=== PATIENT | male | born 1950 | race Caucasian/White ===

== ENCOUNTER 2024-01-26 14:06 | Inpatient (IN) | payer OTHER, SELFPAY ==
[2024-01-26] VITALS (8 sets, daily range): BP systolic 16–166; BP diastolic 64–89; BMI 31.1
[2024-01-26 11:47] LABS: % Basophils 0.2 % (0-2); % Eosinophils 0.9 % (0-6); % Immature Granulocytes 0.3 % (0-0.5); % Lymphocytes 8.9 % (20.5-51.1); % Monocytes 7.5 % (1.7-9.3); % Neutrophils 82.2 % (42.2-75.2); Absolute Eosinophils 0.1 10^3/uL (0-0.7); Absolute Lymphocytes 1.1 10^3/uL (1.2-3.4); Absolute Monocytes 0.9 10^3/uL (0.1-0.6); Hemoglobin 14.5 g/dL (13.0-18.0); Mean Corp Hgb Conc. 34.5 g/dL (33.0-37.0); Mean Corpuscular Hgb 31.6 pg (27.0-31.0); Mean Corpuscular Volume 91.5 fL (80.0-94.0); Mean Platelet Volume 10.3 fL (7.4-10.4); Nucleated Red Blood Cells % 0 % (-); Platelet Count 252 10^3/uL (130-400); Red Blood Cell Count 4.59 10^6/uL (4.70-6.10); Red Cell Dist. Width 13.2 % (11.5-14.5); White Blood Cell Count 12.2 10^3/uL (4.8-10.8)
[2024-01-26 12:11] LABS: ALT (SGPT) 26 U/L (0-50); AST (SGOT) 27 U/L (17-59); Albumin 4.1 g/dl (3.5-5.0); Alkaline Phosphatase 114 U/L (38-126); Blood Urea Nitrogen 32 mg/dl (9-20); Calcium 9.2 mg/dl (8.4-10.2); Carbon Dioxide 26 mmol/L (22-30); Chloride 100 mmol/L (98-107); Glucose 151 mg/dl (70-99); Potassium 3.6 mmol/L (3.5-5.1); Sodium 141 mmol/L (135-145); Total Bilirubin 0.6 mg/dl (0.2-1.3); Total Protein 6.9 g/dl (6.3-8.2); eGFR > 60.00
--- NOTE | 2024-01-26 13:38 | ED.GENMED ---
History of Present Illness
General
Chief Complaint: Skin Problem
Source: patient and spouse
Time Seen by Provider: 01/26/24 13:10
History of Present Illness
History of Present Illness:
73-year-old male with past medical history of hypertension, hyperlipidemia, CAD, insulin-dependent diabetes presenting to the emergency department for evaluation of right plantar foot wound/infection that started approximately 4 days ago, gave
patient 4 total doses of Augmentin starting yesterday which she had leftover from previous use but noticed continued redness and drainage from the foot. believes this started from about 2 weeks ago when patient had been walking barefoot and
accidentally got a splinter which she was able to remove fully intact. Starting 4 days ago patient has had gradually worsening pain and swelling since then. Patient's last hemoglobin A1c couple weeks ago was around 7.5. Denies any fevers, chills,
rigors. Last oral intake of food or liquids was at 8 AM this morning.
Past History
Past History
ED Past Medical History: CAD, HTN, Hypercholesterolemia and IDDM
ED Past Surgical History: None
Social History
Tobacco: Non-smoker
Alcohol: None
Drug: None
Personal:
Living: with family
Review of Systems
Review of Systems
All Other Systems: ROS reviewed and negative except as documented in HPI and ROS
Phy Exam
Physical Exam
Physical Exam:
GENERAL: Alert , in no apparent distress
EYE: conjunctiva clear
Head: Normocephalic atraumatic
NECK: Supple,
ENT: mmm.
LUNGS: no acute respiratory distress
NEUROLOGICAL: Alert and oriented
SKIN: Warm and dry, moderate sized abscess in between 1st and 2nd distal metatarsals with significant surrounding erythema and edema. Moderate pain on palpation. small purulent drainage from wound opening. Palpable pedal pulses b/l. CR < 2 sec
MUSCULOSKELETAL: well perfused.
PSYCH: Normal and appropriate interaction.
Scores
Heart Failure Risk
Heart Failure Risk Score: Not Applicable
Heart Score for Chest Pain Patients
STEMI patient?: Not applicable
Withdrawal Assessment of Alcohol
Withdrawal Assessment Completed?: Not applicable
Course
Orders/Labs/Results
Orders:
Orders
01/26/24 11:38
C-Reactive Protein Urgent
Comment: ADD ON
Complete Blood Count/With Diff Urgent
Comprehensive Metabolic Panel Urgent
Erythrocyte Sed Rate Urgent
Comment: ADD ON
Glycohemoglobin (HgbA1c) Urgent
01/26/24 13:27
Add On- LAB Urgent
Tests Added?: esr/crp
Piperacillin/Tazo 3.375 Gram [Zosyn] 3.375 gram in 50 ml IV NOW
CR Foot - Right Min 3 Views Urgent
Comment:
Reason For Exam: diabetic foot abscess
01/26/24 13:29
Vancomycin [Vancocin] 2,000 mg 0.9% Sodium Chloride 500 ml [Nss] 500 ml IV NOW
01/26/24 13:49
Admit/Transfer Patient As Directed
Co-Sign Provider:
Level of Care: Inpatient admission
Assign to:: Medical/Surgical
Physician / Group: devan
Diagnosis: foot abscess
Reason for Hospitalization: foot abscess
Expected length of stay greater than two midnights?: Yes
ELOS- Estimated Length of Stay in days: 2
I certify the patient meets the requirements for IP care: Yes
PRN Pain Medication Management As Directed
May give lesser potent ordered pain med per pt: Yes
preference::
Protocol:: Medication orders for pain may be administered in a
manner that supports deferring to patient preference
when the pt is:
- Requesting an ordered lesser potent pain medication.
Least to most potent pain medications are defined
as: acetaminophen < NSAID < tramadol < opioids
(morphine, oxycodone, hydromorphone).
- Requesting a lesser dose of the same medication IF
ORDERED.
- Requesting a less intrusive route of administration
if both routes are prescribed by the provider (PO <
IV).
01/26/24 13:50
Code Status As Directed
Resuscitation Status: Full Code
01/26/24 13:52
Wound Culture [Wound/Abscess/Other Culture] Urgent
JULIENNE Source: Foot
Specimen Description: Right
Date Specimen was Collected: 01/26/24
Time Specimen was Collected: 13:49
Abnormal Lab Results
01/26/24
11:38
WBC 12.2 H 10^3/uL
(4.8-10.8)
RBC 4.59 L 10^6/uL
(4.70-6.10)
MCH 31.6 H pg
(27.0-31.0)
Absolute Neuts (auto) 10.0 H 10^3/uL
(1.4-6.5)
Absolute Lymphs (auto) 1.1 L 10^3/uL
(1.2-3.4)
Absolute Monos (auto) 0.9 H 10^3/uL
(0.1-0.6)
Neutrophils % 82.2 H %
(42.2-75.2)
Lymphocytes % 8.9 L %
(20.5-51.1)
ESR 26 H mm/hour
(0-20)
BUN 32 H mg/dl
(9-20)
Glucose 151 H mg/dl
(70-99)
Hemoglobin A1c 7.4 H %
(4.0-5.6)
C-Reactive Protein 75.10 H mg/L
(0.0-10.00)
01/26/24 11:38
01/26/24 11:38
Vital Signs
Initial and Last Documented VS:
Initial Vital Signs
Temp Pulse Resp BP Pulse Ox
98.4 F 82 18 139/89 98
01/26/24 11:30 01/26/24 11:30 01/26/24 11:30 01/26/24 11:30 01/26/24 11:30
Last Documented Vital Signs
Temp Pulse Resp BP Pulse Ox
98.4 F 82 18 139/89 98
01/26/24 11:30 01/26/24 11:30 01/26/24 11:30 01/26/24 11:30 01/26/24 11:30
MDM/Problems Addressed
Differential Diagnosis Includes:
cellulitis, abscess, osteomyelitis, gangrene, retained foreign body
MDM/Problems Addressed:
73-year-old male presenting to the emergency department for evaluation of right foot wound/abscess. Patient has significant amount of erythema, purulence and edema to the plantar surface of the right foot. He is afebrile and overall well-appearing
however given his insulin-dependent diabetes and appearance of the foot I do feel patient likely needs more urgent treatment with IV antibiotics and likely incision and drainage done by podiatry. Will notify podiatry to help with disposition
planning.
Chronic conditions affecting care: DM
Acute Exacerbation and/or Progression of Chronic Illness: DM
*Radiology
Radiology exam reviewed: preliminary read by ED provider (no FB, no osseous erosion)
*Pulse Oximetry
Patient hypoxic: no
*Critical Care Note
Total Time (30-74mins, 75-104mins- exclusive of procedures): Not Applicable
Patient Management
Discussion with other providers: Hospitalist and Executive Candidate Developer
Escalation/DeEscalation of care consider admission/obs:
Case was discussed with podiatry who agrees with plan for admission and IV antibiotics. Planning to take to the OR for incision and drainage either today or tomorrow. Hospitalist team accepts for continued evaluation and treatment.
ED Attending Note
-
Portions of this chart may have been created with voice recognition software.� Occasional wrong word or��sound alike� substitutions may have occurred due to the inherent limitations of voice recognition software.
Discharge Plan
Departure
Patient Disposition: Admit
Date of Disposition: 01/26/24
Time of Disposition: 13:38
Presentation/result/management discussed w/ accepting MD/DO: Hospitalist
Discharge Problem:
Abscess of right foot, Diabetes mellitus
Interventions
Interventions:
*Risk Screen - Suicide Last Done: 01/26/24 11:30
*General Assessment Last Done: 01/26/24 11:30
*Neglect/Abuse Screening Last Done: 01/26/24 11:30
*ED COVID-19 Vaccine History Last Done: 01/26/24 11:30
ED-Skin Assessment Last Done: 01/26/24 13:43
[2024-01-26] MEDS: ZOSYN 50 IV ×2 (13:48→21:00)
[2024-01-26 13:55] LABS: Erythrocyte Sed Rate 26 mm/hour (0-20)
--- NOTE | 2024-01-26 13:56 | HPS.HSE ---
Addendum entered and electronically signed by Mayela Pedroza MD 01/26/24 13:58:
continue nighttime aspart.
Original Note:
Family Physician
-
Family Physician: NOT KNOW UNKNOWN - PT DOES
Chief Complaint
-
foot abscess
History of Present Illness
73-year-old [place]-speaking male past medical history of diabetes, diabetic neuropathy, hypertension, CAD status post stent, pacemaker, GERD, gout, BPH presenting with pain, redness and discharge under his right foot after stepping on a splinter on
wood floor a week ago. Symptoms developed 2 days ago. No fevers or chills.
He has a history of diabetes that was previously uncontrolled but once he started Ozempic 3 years ago and lost weight his A1c has come down to 7.5.
He denies smoking or alcohol.
Medical History
Past Medical History
Past Medical History: Reports Other (diabetes, diabetic neuropathy, hypertension, CAD status post stent, pacemaker, GERD, gout, BPH)
Past Surgical History: Reports None
Social History
Tobacco: Non-smoker
Alcohol: None
Drug: None
Family History
Family History: Not pertinent
Allergies / Home Medications
Allergies reflects when Allergies were last updated in [facility].
Home Medications with original date entered in [facility]
Allergy/Medication List:
Allergies
Allergy/AdvReac Type Severity Reaction Status Date / Time
No Known Allergies Allergy Verified 01/26/24 11:33
Home Medications
allopurinol 100 mg tablet 100 mg PO DAILY 01/26/24
cholecalciferol (vitamin D3) 50 mcg (2,000 unit) tablet (Vitamin D3) 50 mcg PO DAILY 01/26/24
clopidogrel 75 mg tablet (Plavix) 75 mg PO DAILY 01/26/24
colchicine 0.6 mg tablet 0.6 mg PO QPM 01/26/24
empagliflozin 25 mg tablet (Jardiance) 25 mg PO DAILY 01/26/24
folic acid 1 mg tablet 1 mg PO DAILY 01/26/24
gabapentin 100 mg capsule 100 mg PO DAILY 01/26/24
hydrochlorothiazide 25 mg tablet 25 mg PO DAILY 01/26/24
insulin aspart U-100 100 unit/mL subcutaneous solution (Novolog U-100 Insulin aspart) 15 unit SC NOON 01/26/24
insulin aspart U-100 100 unit/mL subcutaneous solution (Novolog U-100 Insulin aspart) 16 unit SC DAILY 01/26/24
insulin aspart U-100 100 unit/mL subcutaneous solution (Novolog U-100 Insulin aspart) 26 unit SC QPM 01/26/24
insulin degludec 200 unit/mL (3 mL) subcutaneous pen (Tresiba FlexTouch U-200 insulin) 18 unit SC HS 01/26/24
isosorbide mononitrate 30 mg tablet,extended release 24 hr 30 mg PO QPM 01/26/24
magnesium oxide 400 mg PO DAILY 01/26/24
metformin 1,000 mg tablet 1,000 mg PO BID 01/26/24
metoprolol succinate 25 mg tablet,extended release 24 hr (Toprol XL) 25 mg PO BID 01/26/24
rosuvastatin 5 mg tablet (Crestor) 5 mg PO QPM 01/26/24
semaglutide 2 mg/dose (8 mg/3 mL) subcutaneous pen injector (Ozempic) 2 mg SC OVALLES 01/26/24
tamsulosin 0.4 mg capsule (Flomax) 0.4 mg PO HS 01/26/24
Review of Systems
-
History Source: Patient
A 12 point ROS was completed and negative except as noted: Yes
Constitutional: Reports No Symptoms
EENT: Reports No Symptoms
Respiratory: Reports No Symptoms
Cardiac: Reports No Symptoms
Abdomen/GI: Reports No Symptoms
: Reports No Symptoms
Musculoskeletal: Reports No Symptoms
Skin: Reports No Symptoms
Neurological: Reports No Symptoms
Endocrine: Reports No Symptoms
Hematologic/Lymphatic: Reports No Symptoms
Psych: Reports No Symptoms
Physical Exam
Vital Signs
Vital Signs
Temp Pulse Resp BP Pulse Ox
98.4 F 82 18 139/89 98
01/26/24 11:30 01/26/24 11:30 01/26/24 11:30 01/26/24 11:30 01/26/24 11:30
Physical Exam
General: Well Developed, Well Nourished and No Apparent Distress
HEENT: NormoCephalic, Moist mucous membranes and Atraumatic
Respiratory: Clear
Cardiac: S1/S2 and Regular Rhythm; No Murmur or Rub
GI: Soft, Non Tender, Non Distended and Normal Bowel Sounds; No Organomegaly
Rectal: Deferred by Provider
Musculoskeletal: No Clubbing, No Cyanosis and No Edema
Skin: Other (plantar foot erythema and swelling ); No Rash
Neuro: Nonfocal/grossly intact
Laboratory Results
-
01/26/24 11:38
01/26/24 11:38
Laboratory Results
Total Bilirubin 0.6 mg/dl (0.2-1.3) 01/26/24 11:38
AST 27 U/L (17-59) 01/26/24 11:38
ALT 26 U/L (0-50) 01/26/24 11:38
Alkaline Phosphatase 114 U/L (38-126) 01/26/24 11:38
Data Reviewed
-
Lab Data: Labs Reviewed by me
Old Records: Reviewed
Impression/Plan
-
IMPRESSION:
PLAN:
# Right foot abscess
-Will likely require I&D
-Podiatry consulted and plan for I&D later today
-Foot x-ray pending, rose
-Wound culture pending
-Vancomycin/Zosyn
-N.p.o. until I&D
Type 2 diabetes
-Continue Jardiance
-Continue Tresiba 18 units nighttime
-Hold aspart for now until I&D
Diabetic neuropathy
-Continue gabapentin
Essential hypertension
-Continue hydrochlorothiazide
-Continue metoprolol
CAD status post stent
-Hold metformin
-Hold Plavix until I&D
-Continue isosorbide mononitrate
-Continue statin
History of pacemaker
GERD
Gout
-Continue allopurinol, colchicine
BPH
-Continue tamsulosin
Full code
DVT prophylaxis�SCDs
N.p.o.
[2024-01-26 14:21] LABS: Glycohemoglobin (HgbA1c) 7.4 % (4.0-5.6)
[2024-01-26] MEDS: VANCOCIN 540 MG IV (14:42)
--- NOTE | 2024-01-26 16:05 | W.PN.UPDATE ---
Update Note
Progress Note Update
pt seen at Er. Full consult dictated
D/w pt and about foot and abscess.
will plan for OR, remain npo
cont abx
will need Id and probable mult procedures. Unsure of extent of abscess/necrosis
npo
consent sign
--- NOTE | 2024-01-26 16:30 | PTCARENOTE ---
Patient arrived from ED. Shannan, [email or web address]. [place]-Speaking. Ex- at bedside. Awaiting OR for R Foot Wound.
[2024-01-26] MEDS: NOVOLOG FLEXPEN SC (16:45)
--- NOTE | 2024-01-26 17:15 | PHA.VAN.IN ---
Assessment
- Assessment
Renal Function: Appears similar to baseline
Concomitant Antimicrobials: piperacillin/tazobactam
AUC Dosing Plan
- Dosing Variables
Dosing Weight (kg): 101
Dosing CrCl (ml/min): 108
Vd coefficient (L/kg): 0.7
- Empiric Dosing
Initial / Loading Dose: vanc 2000mg
Maintenance Regimen: vanc 1500mg Q12H
Estimated AUC (mcg*h/mL): 483
Estimated Peak (mcg*h/mL): 31.4
Estimated Trough (mcg/ml): 11.7
Estimated Half Life (H): 7.4
- Monitoring
No levels ordered at this time: consider levels in next few days
Pharmacokinetics Vancomycin I
- -
Patient Age: 73
Patient Sex: Male
Vancomycin Day #: 1
Indication: Skin And Soft Tissue
Requesting Provider: Dr. Pedroza
Pertinent Antimicrobial Allergies:
no pertinent antimicrobial allergies
Height / Weight:
Height 5 ft 11 in
Actual Weight 101 kg
Pertinent Past Medical History: BMI ~31
- Vital Signs / Lab Results
Temp Pulse Resp BP Pulse Ox
98.3 F 61 18 166/78 96
01/26/24 16:31 01/26/24 16:31 01/26/24 16:31 01/26/24 16:31 01/26/24 16:31
Lab Results - Hematology
01/26/24
11:38
WBC 12.2 H
Lab Results - Chemistry
01/26/24
11:38
BUN 32 H
Creatinine 0.9
Albumin 4.1
[2024-01-26 17:43] LABS: Glucose - Point of Care 117 mg/dl (70-99)
--- NOTE | 2024-01-26 18:44 | W.PN.UPDATE ---
Update Note
Progress Note Update
pt seen in RR
dressing cdi
cft intact
a/p s/p I&D/excisional debridement wound to tendon right foot----stable. wound packed
cont iv abx
will monitior wound
nwb right foot, PT consult
possible wound vac needed, will determine tomorrow
[2024-01-26] MEDS: IMDUR (EXTENDED RELEASE) 30 MG PO (19:30)
[2024-01-26] MEDS: COLCHICINE 0.6 MG PO (19:30)
[2024-01-26] MEDS: CRESTOR 5 MG PO (19:30)
[2024-01-26] MEDS: TOPROL XL 25 MG PO (21:00)
[2024-01-26 21:01] LABS: Glucose - Point of Care 183 mg/dl (70-99)
[2024-01-26] MEDS: LANTUS 0.18 UNITS SC (21:23)
[2024-01-26] MEDS: FLOMAX 0.4 MG PO (21:23)
--- NOTE | 2024-01-26 21:27 | TRANSFER ---
Received report from VISION THERAPIST Giana - received pt in bed at 1920 from PACU s/p right foot abscess/I&D. Right foot w post op dressing CDI, wrapped w luis. +CMS to right foot toes. +1 edema, + posterior tibial pulse. pt denied pain. VSS. Bed in lowest
position, call saldana within reach. Family at the bedside.
[2024-01-27] MEDS: ZOSYN 50 IV ×4 (02:05→20:21)
[2024-01-27 02:56] VITALS: BP 138/67
[2024-01-27] MEDS: TYLENOL 650 MG PO (04:52)
[2024-01-27] MEDS: VANCOCIN 530 MG IV (05:38)
[2024-01-27 06:54] LABS: % Basophils 0.4 % (0-2); % Eosinophils 1.1 % (0-6); % Immature Granulocytes 0.3 % (0-0.5); % Lymphocytes 10.5 % (20.5-51.1); % Monocytes 7.5 % (1.7-9.3); % Neutrophils 80.2 % (42.2-75.2); Absolute Eosinophils 0.1 10^3/uL (0-0.7); Absolute Lymphocytes 1.2 10^3/uL (1.2-3.4); Absolute Monocytes 0.8 10^3/uL (0.1-0.6); Absolute Neutrophils 8.8 10^3/uL (1.4-6.5); Hematocrit 38.6 % (39.0-52.0); Hemoglobin 12.9 g/dL (13.0-18.0); Mean Corp Hgb Conc. 33.4 g/dL (33.0-37.0); Mean Corpuscular Hgb 31.3 pg (27.0-31.0); Mean Corpuscular Volume 93.7 fL (80.0-94.0); Mean Platelet Volume 10.3 fL (7.4-10.4); Nucleated Red Blood Cells % 0 % (-); Platelet Count 233 10^3/uL (130-400); Red Blood Cell Count 4.12 10^6/uL (4.70-6.10); Red Cell Dist. Width 13.3 % (11.5-14.5); White Blood Cell Count 10.9 10^3/uL (4.8-10.8)
[2024-01-27 07:30] VITALS: BP 153/78
[2024-01-27 07:35] LABS: ALT (SGPT) 21 U/L (0-50); AST (SGOT) 19 U/L (17-59); Albumin 3.3 g/dl (3.5-5.0); Alkaline Phosphatase 87 U/L (38-126); Blood Urea Nitrogen 25 mg/dl (9-20); Calcium 8.5 mg/dl (8.4-10.2); Carbon Dioxide 29 mmol/L (22-30); Chloride 99 mmol/L (98-107); Estimated Creatinine Clearance 82 ml/min; Glucose 135 mg/dl (70-99); Potassium 3.6 mmol/L (3.5-5.1); Sodium 137 mmol/L (135-145); Total Protein 5.8 g/dl (6.3-8.2); eGFR > 60.00
--- NOTE | 2024-01-27 07:36 | W.PN.UPDATE ---
Update Note
Progress Note Update
pt seen at bedside
+ pain is 3-4/10
bleeding on bandage
cft inatct
derm decreased cellulitis. wound oozing blood
no pus
no odor
slight questionable tissue distally
C&s wbx and gram + cocci from er
a/p s/p I&D right---stable
bandage changed, irrigated, loosely packed
cont abx
nwb right foot with crutches.PT consult
will get ID consult
will get wound care consult, possible vac
[2024-01-27 08:03] LABS: Glucose - Point of Care 124 mg/dl (70-99)
[2024-01-27] MEDS: NOVOLOG FLEXPEN-LOW RESISTANCE SC (08:03)
[2024-01-27] MEDS: ORETIC 25 MG PO (08:17)
[2024-01-27] MEDS: MAG-TAB SR 84 MG PO (08:17)
[2024-01-27] MEDS: FOLVITE 1 MG PO (08:17)
[2024-01-27] MEDS: ZYLOPRIM 100 MG PO (08:18)
[2024-01-27] MEDS: FARXIGA 10 MG PO (08:18)
[2024-01-27] MEDS: TOPROL XL 25 MG PO ×2 (08:18→20:21)
[2024-01-27] MEDS: VITAMIN D3 (cholecalciferol) 50 MCG PO (08:18)
[2024-01-27] MEDS: NEURONTIN 100 MG PO (08:18)
--- NOTE | 2024-01-27 10:59 | CON.ID ---
Consultation
-
Date/Time Consultation Requested: 01/27/2024 0739
Date/Time Consultation Performed: 01/27/2024 1030
Requesting Provider: Dr. Lowery
Performing Provider: Dr. Botello
Reason for Consultation: Right foot abscess
Chief Complaint / Past History
History of Present Illness
Ranjith Lopez is a 73-year-old man with a significant past medical history of DM with neuropathy, along with CAD being evaluated at the request of Dr. Lowery in regards to a right foot infection. History is obtained from the patient, along with
history obtained from the patient's ex- who was present at the bedside.
The patient was in his usual state of health until approximately 2 weeks ago when he was walking across the floor (barefoot) and got a splinter in his right foot. His ex- states that she looked at the foot and remove the splinter without issue,
and for the next week or so the patient did well, but approximately 4 days ago he noted some increasing redness of the plantar surface of the right foot and over the intervening days the erythema spread. Yesterday he noted marked increase in
discomfort, ultimately coming to the emergency room for further evaluation. He denied any fevers or chills at home. He did have some foot pain, but no significant tracking up the leg.
In the emergency room he was evaluated. He was found to have a leukocytosis, and Podiatry was consulted. It was felt that he had an abscess, and last evening he was taken to the OR for I&D. Cultures from the OR are now pending.
At present, he denies any current fevers or chills. Pain from the surgery is overall controlled.
Past History
Additional Past Medical History:
CAD
HTN
Dyslipidemia
DM with neuropathy
Additional Past Surgical History:
PCI with stenting
PPM placement
Allergy History:
No Known Allergies Allergy (Verified 01/26/24 11:33)
Medications Reviewed: Yes
Current Antibiotics:
Zosyn 3. 3 7 5 g IV every 6 hours
Vancomycin (dosing per pharmacy)
Social History
Tobacco: Former Smoker
Alcohol: None
Drug: None
Personal:
Living: With Family
Employment: Retired
Family History
Family History: Not Pertinent
Review of Systems
Vital Signs
Temp Pulse Resp BP Pulse Ox
97.2 F 66 14 153/78 96
01/27/24 07:30 01/27/24 07:30 01/27/24 07:30 01/27/24 07:30 01/27/24 08:00
Physical Exam
Physical Exam
Constitutional: No Acute Distress, Comfortable and Non-toxic
Eyes: No Conjunctival Hemorrhage and Sclera Anicteric
Oral: No Thrush and No Ulcers
Cardiovascular: Regular Rate and S1/S2; Negative S3/S4 or Murmur
Pulmonary: Clear and Non Labored; Negative Wheezes or Rales
Gastrointestinal: Soft, Non Tender, Non Distended and Normal Bowel Sounds
Genito-Urinary: Negative Ham
Extremities: Negative Edema, Cyanosis or Erythema
Wound: Other (Right foot dressed with Jeremias wrap. Mild bloody strikethrough.)
Neurological: Awake and Alert
Psychological: Calm
.
Lab / Diagnostic Study Results
01/27/24 06:06
01/27/24 06:06
Abs Immat Gran (auto) 0.0 10^3/uL (0-0.05) 01/27/24 06:06
Absolute Neuts (auto) 8.8 10^3/uL (1.4-6.5) H 01/27/24 06:06
Absolute Lymphs (auto) 1.2 10^3/uL (1.2-3.4) 01/27/24 06:06
Absolute Monos (auto) 0.8 10^3/uL (0.1-0.6) H 01/27/24 06:06
Absolute Basos (auto) 0.0 10^3/uL (0-0.2) 01/27/24 06:06
Immature Gran % 0.3 % (0-0.5) 01/27/24 06:06
Neutrophils % 80.2 % (42.2-75.2) H 01/27/24 06:06
Lymphocytes % 10.5 % (20.5-51.1) L 01/27/24 06:06
Monocytes % 7.5 % (1.7-9.3) 01/27/24 06:06
Eosinophils % 1.1 % (0-6) 01/27/24 06:06
Basophils % 0.4 % (0-2) 01/27/24 06:06
ESR 26 mm/hour (0-20) H 01/26/24 11:38
C-Reactive Protein 75.10 mg/L (0.0-10.00) H 01/26/24 11:38
Microbiology Results
Micro:
01/26/24 18:13 Wound Culture - Pending
Abscess Gram Stain - Preliminary
01/26/24 18:13 Anaerobic Culture - Pending
Abscess
01/26/24 13:52 Wound Culture - Pending
Foot - Right Gram Stain - Preliminary
Imaging:
01/26/2024 Right foot x-ray: No acute fracture, dislocation or subluxation. A small plantar calcaneal spur is noted. Mild degenerative changes of the first metatarsal phalangeal joint noted. No periosteal reaction or erosive changes noted. No
opaque foreign body identified. Please see full dictation for additional detail. Film personally reviewed.
Assessment / Plan
Right foot abscess; s/p I&D
Right foot cellulitis
DM with neuropathy
Elevated CRP (75)
HTN
CAD
Dyslipidemia
Recommendations:
Continue with empiric Zosyn and vancomycin.
Wound cultures currently pending. Gram stain reveals growth of gram-positive cocci.
Follow white count and temperature curve.
Lower extremity elevation.
Await further culture data to guide antimicrobial selection and potential de-escalation.
Further recommendations as additional data is returned.
[2024-01-27 11:06] VITALS: BP 135/93
--- NOTE | 2024-01-27 11:27 | CM ---
Reviewed the chart notes and spoke with the patient and his ex-spouse at the bedside. Patient's ex-spouse acted as automobile service writer. Patient s/p I&D/excisional debridement wound to tendon right foot. The patient resides with her in a two story home
with three steps to enter. The patient has a first floor set-up with full bath with shower rails and shower chair. The patient has a rolling walker. The patient reports no VN or SNF in the past. The patient confirmed his pharmacy of choice is
the [facility], The patient's PCP is Dr. Jeferson Lanier. CM continues to be available to patient/family and is monitoring medical plan for needs at discharge.
Plan: Discharge plans will depend on the patient's progress. Awaiting wound culture result.
[2024-01-27 11:34] LABS: Glucose - Point of Care 223 mg/dl (70-99)
[2024-01-27] MEDS: NOVOLOG FLEXPEN-LOW RESISTANCE 2 UNITS SC (11:35)
--- NOTE | 2024-01-27 12:12 | PHA.VAN.FU ---
Vancomycin Assessment / Plan
- Assessment
Renal Function: Stable
WBC's are: Trending Down
In the past 24 hrs, patient has been: Afebrile
Concomitant Antimicrobials: piperacillin/tazobactam
- Dosing Plan
Adjust Regimen to: Vanc 1250mg Q12H starting at 1800
New Regimen Predicts: AUC (469 - 515), Peak (28.7 - 30.4), Trough (12.4 - 14.2)
Dosing Comments: utilized CrCl 82-91 ml/min in calculations
- Monitoring Plan
No level(s) ordered at this time: consider levels in next few days
- Follow Up
Pharmacy will continue to follow.
Vancomycin Follow UP
- -
Patient Age: 73
Patient Sex: Male
Vancomycin Day #: 2
Indication: Skin And Soft Tissue
Requesting Provider: Dr. Pedroza / Ayan
Pertinent Antimicrobial Allergies:
NKDA
Height / Weight:
Height 5 ft 11 in
Actual Weight 101 kg
Pertinent Past Medical History: BMI ~31
- Vital Signs / Lab Results
Temp Pulse Resp BP Pulse Ox
98.1 F 66 14 135/93 96
01/27/24 11:06 01/27/24 11:06 01/27/24 11:06 01/27/24 11:06 01/27/24 11:06
Lab Results - Hematology
01/26/24 01/27/24
11:38 06:06
WBC 12.2 H 10.9 H
Lab Results - Chemistry
01/26/24 01/27/24
11:38 06:06
BUN 32 H 25 H
Creatinine 0.9 1.0
Estimated Creat Clear 82
Albumin 4.1 3.3 L
Microbiology Results
01/26/24 18:13 Gram Stain - Preliminary
Abscess
01/26/24 13:52 Gram Stain - Preliminary
Foot - Right
--- NOTE | 2024-01-27 13:25 | WOUNDNOTE ---
WOC RN NOTE: Reviewed chart. Right foot abscess s/p I & D was seen by Dr. Lowery this morning and plan right now is to reinforce dressing. TT Dr. Lowery who plans seeing patient again later this evening. Will continue to follow peripherally.
[2024-01-27 15:10] VITALS: BP 145/79
--- NOTE | 2024-01-27 15:24 | W.PN.HOSP.TC ---
Today's Communication/Plan
-
f/u cultures
cont abx
wound vac/podiatry care
resume plavix, start hsq for dvt ppx
Assessment / Plan
Assessment / Plan
Physical Exam
General: Well Developed, Well Nourished and No Apparent Distress
HEENT: NormoCephalic, Moist mucous membranes and Atraumatic
Respiratory: Clear
Cardiac: S1/S2 and Regular Rhythm; No Murmur or Rub
GI: Soft, Non Tender, Non Distended and Normal Bowel Sounds; No Organomegaly
Rectal: Deferred by Provider
Musculoskeletal: No Clubbing, No Cyanosis and No Edema
Skin: Other (plantar foot erythema and swelling - Wrapped in bandage); No Rash
Neuro: Nonfocal/grossly intact
PLAN:
# Right foot abscess
-S/p I&D - staph
-Podiatry and ID consulted
--Wound culture pending
-Vancomycin/Zosyn
Type 2 diabetes
-Continue Jardiance
-Continue Tresiba 18 units nighttime
-Hold aspart for now until I&D
Diabetic neuropathy
-Continue gabapentin
Essential hypertension
-Continue hydrochlorothiazide
-Continue metoprolol
CAD status post stent
-Hold metformin
-Plavix
-Continue isosorbide mononitrate
-Continue statin
History of pacemaker
GERD
Gout
-Continue allopurinol, colchicine
BPH
-Continue tamsulosin
Full code
DVT prophylaxis�hsq
Anticipated Discharge: 24 - 48 hours
Subjective/Interval History
-
Date of Service: January 27, 2024
No acute events overnight, I&D performed, awaiting cultures
Objective Data
-
Labs:
Laboratory Results
01/27/24
06:06
WBC 10.9 H
Hgb 12.9 L
Hct 38.6 L
Plt Count 233
Sodium 137
Potassium 3.6
Chloride 99
Carbon Dioxide 29
BUN 25 H
Creatinine 1.0
Glucose 135 H
Calcium 8.5
Total Bilirubin 1.0
AST 19
ALT 21
Alkaline Phosphatase 87
Vital Signs:
Vital Signs
Temp Pulse Resp BP Pulse Ox
98.1 F 66 14 135/93 96
01/27/24 11:06 01/27/24 11:06 01/27/24 11:06 01/27/24 11:06 01/27/24 11:06
I&O
01/26/24 01/27/24 01/28/24
06:59 06:59 06:59
Intake Total 0 / 2110
Output Total 500 / 500
Balance 1610 / 1610
Review of Systems
-
History Source: Patient
All other systems: Not reviewed unless documented
Data Reviewed
-
Diagnostic Radiology: Report Reviewed by me
Labs: Labs Reviewed by me
[2024-01-27] MEDS: DILAUDID 0.5 MG IV (16:50)
[2024-01-27 16:51] LABS: Glucose - Point of Care 278 mg/dl (70-99)
[2024-01-27] MEDS: NOVOLOG FLEXPEN-LOW RESISTANCE 3 UNITS SC (16:51)
[2024-01-27] MEDS: PLAVIX 75 MG PO (16:52)
[2024-01-27] MEDS: CRESTOR 5 MG PO (17:00)
[2024-01-27] MEDS: COLCHICINE 0.6 MG PO (17:00)
[2024-01-27] MEDS: IMDUR (EXTENDED RELEASE) 30 MG PO (17:00)
[2024-01-27] MEDS: VANCOCIN 275 MG IV (17:00)
[2024-01-27] MEDS: NOVOLOG FLEXPEN 26 UNITS SC (17:00)
--- NOTE | 2024-01-27 17:37 | W.PN.POD ---
Today's Communication
Today's Communication
s/p I&D right foot---stable, bleeding noted, d/w hospitalist to get off anti coag if possible
repacked with topical thrombin gauze
would get mri to see any other issues/osteo etc
rec vac placement after mri
Subjective
Chief Complaint
pt seen s.p I&D
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
Subjective
vacs intact
+ bleeding from wound
derm --still with cellulitis, wound clean, questionable minimal tissue distally, no smell, no pus
cft intact
+ staph from intra op
Objective
Temp Pulse Resp BP Pulse Ox
97.8 F 78 16 145/79 98
01/27/24 15:10 01/27/24 15:10 01/27/24 15:10 01/27/24 15:10 01/27/24 15:10
01/27/24 06:06
01/27/24 06:06
Vital Signs and Lab results were reviewed.
[2024-01-27] MEDS: RECOTHROM 20000 UNITS TOPICAL (17:59)
[2024-01-27 19:19] VITALS: BP 119/64
[2024-01-27 21:15] LABS: Glucose - Point of Care 136 mg/dl (70-99)
[2024-01-27] MEDS: FLOMAX 0.4 MG PO (21:31)
[2024-01-27] MEDS: LANTUS 0.18 UNITS SC (21:31)
[2024-01-27 23:00] VITALS: BP 130/64
[2024-01-28] VITALS (7 sets, daily range): BP systolic 129–159; BP diastolic 66–84; PULSE 61
[2024-01-28] MEDS: ZOSYN 50 IV ×2 (01:08→09:10)
[2024-01-28] MEDS: VANCOCIN 275 MG IV (05:34)
--- NOTE | 2024-01-28 08:19 | W.PN.POD ---
Today's Communication
Today's Communication
s/p I&D right foot/excisional debridement ---stable
mri to make sure no osteo and no abscess in joint ( mpj)---unlikely
rec vac placement and cont abx
if mri normal, stable for dc tomorrow
will need vac therapy at home , and cont abx
will need to be nwb right foot
awaiting mri
no heparin please
Subjective
Chief Complaint
pt seen at bedside
minimal pain
dressing cdi
Subjective
vasc intact, foot warm, cft intact
derm stable, wound mostly granular, minimal fibrosis
no odor, no pus, cellulitis resolving
Objective
Temp Pulse Resp BP Pulse Ox
98.6 F 69 18 132/67 95
01/28/24 02:47 01/28/24 02:47 01/28/24 02:47 01/28/24 02:47 01/28/24 02:47
Vital Signs and Lab results were reviewed.
[2024-01-28 08:39] LABS: Hematocrit 39.9 % (39.0-52.0); Hemoglobin 13.8 g/dL (13.0-18.0); Mean Corp Hgb Conc. 34.6 g/dL (33.0-37.0); Mean Corpuscular Hgb 31.4 pg (27.0-31.0); Mean Corpuscular Volume 90.9 fL (80.0-94.0); Mean Platelet Volume 10.2 fL (7.4-10.4); Platelet Count 265 10^3/uL (130-400); Red Blood Cell Count 4.39 10^6/uL (4.70-6.10); White Blood Cell Count 8.6 10^3/uL (4.8-10.8)
[2024-01-28 09:04] LABS: Glucose - Point of Care 260 mg/dl (70-99)
[2024-01-28] MEDS: NOVOLOG FLEXPEN-LOW RESISTANCE 3 UNITS SC (09:09)
[2024-01-28] MEDS: PLAVIX 75 MG PO (09:10)
[2024-01-28] MEDS: MAG-TAB SR 84 MG PO (09:10)
[2024-01-28] MEDS: NEURONTIN 100 MG PO (09:10)
[2024-01-28] MEDS: FOLVITE 1 MG PO (09:10)
[2024-01-28] MEDS: FARXIGA 10 MG PO (09:10)
[2024-01-28] MEDS: VITAMIN D3 (cholecalciferol) 50 MCG PO (09:10)
[2024-01-28] MEDS: ZYLOPRIM 100 MG PO (09:10)
[2024-01-28] MEDS: FLUSH (NSS) 1 FLUSH IV ×2 (09:11→14:00)
[2024-01-28] MEDS: ORETIC 25 MG PO (09:13)
[2024-01-28] MEDS: TOPROL XL 25 MG PO ×2 (09:13→20:18)
[2024-01-28 09:23] LABS: ALT (SGPT) 22 U/L (0-50); AST (SGOT) 23 U/L (17-59); Albumin 3.7 g/dl (3.5-5.0); Alkaline Phosphatase 90 U/L (38-126); Blood Urea Nitrogen 21 mg/dl (9-20); Carbon Dioxide 27 mmol/L (22-30); Chloride 98 mmol/L (98-107); Estimated Creatinine Clearance 82 ml/min; Glucose 199 mg/dl (70-99); Potassium 3.8 mmol/L (3.5-5.1); Sodium 137 mmol/L (135-145); Total Bilirubin 0.9 mg/dl (0.2-1.3); Total Protein 6.3 g/dl (6.3-8.2); eGFR > 60.00
--- NOTE | 2024-01-28 09:33 | CM ---
Addendum entered by Raina Macias 01/28/24 14:33:
[facility]
Spoke with patient &
Addendum entered by Raina Macias 01/28/24 12:10:
Vielka from [facility] called - unable to accept patient
Referral sent to [facility] [place] [facility]
Original Note:
Patient seen at bedside.
[place] speaking, able to communicate with CM
s/p I&D R foot
MRI today
make sure no osteo and no abscess in joint
Wound Vac to be placed
PT recommending home health
Spoke with patient regarding agency options
No preference. [facility] referral placed in [facility]
Wants CM to also speak with when she arrives
PLAN: Home, visiting nurse.
[2024-01-28] MEDS: NOVOLOG FLEXPEN 7 UNITS SC (09:53)
[2024-01-28 11:42] LABS: Glucose - Point of Care 184 mg/dl (70-99)
[2024-01-28] MEDS: NOVOLOG FLEXPEN-LOW RESISTANCE 1 UNITS SC (13:00)
[2024-01-28] MEDS: NOVOLOG FLEXPEN 15 UNITS SC (13:01)
--- NOTE | 2024-01-28 13:09 | W.PN.ID1 ---
Date of Service
Date of Service: January 28, 2024
Today's Communication
Narrow to cefazolin.
Assessment / Plan
Right foot abscess; s/p I&D
Right foot cellulitis
DM with neuropathy
Elevated CRP
Leukocytosis; improved
HTN
CAD
Dyslipidemia
Recommendations:
Cultures with Staph aureus (MSSA)
Narrow antibiotics to cefazolin.
Continue with local care to the area. VAC therapy to be applied to the wound area.
MRI has been ordered to assess for any potential osteomyelitis.
Further recommendations as additional data is returned.
����������������������������������������������������������
Chief Complaint
-: Other (Right foot diabetic foot infection)
Subjective / Review of Systems
Patient seen and examined. Reports feeling well. Less pain in the right foot overnight. No fevers or chills.
Vital Signs / Physical Exam
Vital Signs
Vital Signs
Temp Pulse Resp BP Pulse Ox
98.2 F 64 18 139/75 98
01/28/24 11:10 01/28/24 11:10 01/28/24 11:10 01/28/24 11:10 01/28/24 11:10
Physical Exam
Constitutional: No Acute Distress, Comfortable and Non-toxic
Eyes: Sclera Anicteric
Cardiovascular: S1/S2; Negative S3/S4
Pulmonary: Non Labored
Gastrointestinal: Soft and Non Tender
Extremities: Negative Cyanosis or Erythema
Wound: Other (Right foot dressed in Jeremias wrap. No erythema extending up foot.)
Neurological: Awake and Alert
Psychological: Calm
Objective Data
Lab Data
Lab Results
01/28/24 08:25
01/28/24 08:25
ESR 26 mm/hour (0-20) H 01/26/24 11:38
Estimated Creat Clear 82 ml/min 01/28/24 08:25
Total Bilirubin 0.9 mg/dl (0.2-1.3) 01/28/24 08:25
AST 23 U/L (17-59) 01/28/24 08:25
ALT 22 U/L (0-50) 01/28/24 08:25
Alkaline Phosphatase 90 U/L (38-126) 01/28/24 08:25
C-Reactive Protein 75.10 mg/L (0.0-10.00) H 01/26/24 11:38
Most recent labs reviewed.
Micro Results:
01/26/24 13:52 Wound Culture - Final
Foot - Right S aureus-Methicillin Sensitive
Gram Stain - Final
01/26/24 18:13 Anaerobic Culture - Preliminary
Abscess Culture pending. Anaerobic cultures are examined after 3
days incubation. Additional information to follow.
01/26/24 18:13 Wound Culture - Preliminary
Abscess S aureus-Methicillin Sensitive
Gram Stain - Preliminary
Imaging:
01/26/2024 Right foot x-ray: No acute fracture, dislocation or subluxation. A small plantar calcaneal spur is noted. Mild degenerative changes of the first metatarsal phalangeal joint noted. No periosteal reaction or erosive changes noted. No
opaque foreign body identified. Please see full dictation for additional detail. Film personally reviewed.
--- NOTE | 2024-01-28 13:19 | W.PN.HOSP.TC ---
Today's Communication/Plan
-
Switch to cefazolin, follow-up final cultures
MRI foot
Wound VAC after MRI-showing no abscess
Assessment / Plan
Assessment / Plan
Physical Exam
General: Well Developed, Well Nourished and No Apparent Distress
HEENT: NormoCephalic, Moist mucous membranes and Atraumatic
Respiratory: Clear
Cardiac: S1/S2 and Regular Rhythm; No Murmur or Rub
GI: Soft, Non Tender, Non Distended and Normal Bowel Sounds; No Organomegaly
Rectal: Deferred by Provider
Musculoskeletal: No Clubbing, No Cyanosis and No Edema
Skin: Other (plantar foot erythema and swelling - Wrapped in bandage); No Rash
Neuro: Nonfocal/grossly intact
PLAN:
# Right foot abscess
-S/p I&D - staph
-Podiatry and ID consulted
--Wound culture pending: MSSA - cont cefazolin
-MRI foot
-Wound vac after MRI after ensuring no abscess
Type 2 diabetes
-Continue Jardiance
-Continue Tresiba 18 units nighttime
-resume home regimen insulin
Diabetic neuropathy
-Continue gabapentin
Essential hypertension
-Continue hydrochlorothiazide
-Continue metoprolol
CAD status post stent
-Hold metformin
-Plavix
-Continue isosorbide mononitrate
-Continue statin
History of pacemaker
GERD
Gout
-Continue allopurinol, colchicine
BPH
-Continue tamsulosin
Full code
DVT prophylaxis�hsq
Total time spent on today's encounter was 50 minutes which included time spent in counseling the patient/family regarding diagnosis and treatment plan as listed above, goals of care, and symptom management. Case was discussed with nursing staff,
specialists, and care coordinators/case management. All labs and imaging personally reviewed by me. Remainder the time spent in detailed review of previous records, lab data, imaging, and other medical provider documentation.
Anticipated Discharge: 24 - 48 hours
Subjective/Interval History
-
Date of Service: January 28, 2024
oozing has resolved
Objective Data
-
Labs:
Laboratory Results
01/28/24
08:25
WBC 8.6
Hgb 13.8
Hct 39.9
Plt Count 265
Sodium 137
Potassium 3.8
Chloride 98
Carbon Dioxide 27
BUN 21 H
Creatinine 1.0
Glucose 199 H
Calcium 9.0
Total Bilirubin 0.9
AST 23
ALT 22
Alkaline Phosphatase 90
Vital Signs:
Vital Signs
Temp Pulse Resp BP Pulse Ox
98.2 F 64 18 139/75 98
01/28/24 11:10 01/28/24 11:10 01/28/24 11:10 01/28/24 11:10 01/28/24 11:10
I&O
01/27/24 01/28/24 01/29/24
06:59 06:59 06:59
Intake Total 2110 / 2110 1420 / 1420
Output Total 500 / 500 325 / 325
Balance 1610 / 1610 1095 / 1095
Review of Systems
-
History Source: Patient
All other systems: Not reviewed unless documented
Data Reviewed
-
Diagnostic Radiology: Report Reviewed by me
Labs: Labs Reviewed by me
[2024-01-28] MEDS: ANCEF 10 IV ×2 (14:00→21:35)
[2024-01-28] MEDS: NOVOLOG FLEXPEN-LOW RESISTANCE SC ×2 (17:30→17:51)
[2024-01-28 17:36] LABS: Glucose - Point of Care 200 mg/dl (70-99)
[2024-01-28] MEDS: NOVOLOG FLEXPEN 26 UNITS SC (17:51)
[2024-01-28] MEDS: IMDUR (EXTENDED RELEASE) 30 MG PO (17:52)
[2024-01-28] MEDS: COLCHICINE 0.6 MG PO (17:52)
[2024-01-28] MEDS: CRESTOR 5 MG PO (17:52)
[2024-01-28] MEDS: FLOMAX 0.4 MG PO (21:35)
[2024-01-28 22:10] LABS: Glucose - Point of Care 191 mg/dl (70-99)
[2024-01-28] MEDS: LANTUS SC (22:30)
[2024-01-29] MEDS: ANCEF 10 IV ×2 (05:40→14:31)
[2024-01-29 05:57] LABS: Glucose - Point of Care 203 mg/dl (70-99)
[2024-01-29 06:38] LABS: Hematocrit 42.4 % (39.0-52.0); Hemoglobin 14.5 g/dL (13.0-18.0); Mean Corp Hgb Conc. 34.2 g/dL (33.0-37.0); Mean Corpuscular Volume 90.6 fL (80.0-94.0); Mean Platelet Volume 10.2 fL (7.4-10.4); Platelet Count 292 10^3/uL (130-400); Red Blood Cell Count 4.68 10^6/uL (4.70-6.10); White Blood Cell Count 7.3 10^3/uL (4.8-10.8)
[2024-01-29 07:03] LABS: ALT (SGPT) 22 U/L (0-50); AST (SGOT) 24 U/L (17-59); Albumin 4.1 g/dl (3.5-5.0); Alkaline Phosphatase 99 U/L (38-126); Blood Urea Nitrogen 27 mg/dl (9-20); Calcium 9.4 mg/dl (8.4-10.2); Carbon Dioxide 25 mmol/L (22-30); Chloride 98 mmol/L (98-107); Estimated Creatinine Clearance 82 ml/min; Glucose 211 mg/dl (70-99); Potassium 3.7 mmol/L (3.5-5.1); Sodium 139 mmol/L (135-145); Total Bilirubin 0.8 mg/dl (0.2-1.3); Total Protein 6.8 g/dl (6.3-8.2); eGFR > 60.00
--- NOTE | 2024-01-29 07:34 | WOUNDNOTE ---
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 MRI has not been done. t/c Spoke with senior sales representative from [employer] who stated they are waiting for clearance from his health screener
d/t patient has a pacemaker. Patient's home vac is in this magnetic tape typewriter operator's office when discharge has been confirmed.
[2024-01-29 07:40] VITALS: BP 142/79
[2024-01-29 07:45] LABS: Glucose - Point of Care 224 mg/dl (70-99)
--- NOTE | 2024-01-29 08:11 | W.PN.POD ---
Today's Communication
Today's Communication
s/p I&d right foot---stable, no further sx tx, awaiting mri to r/o any osteo/ or issues infection mpjs
stable for dc, pending mri
will need abx upon dc per Id and vna for vac
pt with pacemaker, awaiting mri
dressing change , wound cleansed/irrigated
needs vac as soon as possible to be placed
Subjective
Chief Complaint
pt seen s/p I&D right foot
no pain
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
+ mssa
Subjective
vascintact
derm decreasing cellulitis, no odor, no pus
minimal fibrosis in wound
wbx down to 7.3
Objective
Temp Pulse Resp BP Pulse Ox
98.4 F 72 17 142/79 98
01/29/24 07:40 01/29/24 07:40 01/29/24 07:40 01/29/24 07:40 01/29/24 07:40
01/29/24 05:49
01/29/24 05:49
Vital Signs and Lab results were reviewed.
[2024-01-29] MEDS: NOVOLOG FLEXPEN 16 UNITS SC (08:18)
[2024-01-29] MEDS: MAG-TAB SR 84 MG PO (08:18)
[2024-01-29] MEDS: NOVOLOG FLEXPEN-LOW RESISTANCE 2 UNITS SC (08:18)
[2024-01-29] MEDS: FOLVITE 1 MG PO (08:18)
[2024-01-29] MEDS: PLAVIX 75 MG PO (08:18)
[2024-01-29] MEDS: ORETIC 25 MG PO (08:18)
[2024-01-29] MEDS: FARXIGA 10 MG PO (08:18)
[2024-01-29] MEDS: TOPROL XL 25 MG PO (08:19)
[2024-01-29] MEDS: NEURONTIN 100 MG PO (08:19)
[2024-01-29] MEDS: ZYLOPRIM 100 MG PO (08:19)
[2024-01-29] MEDS: VITAMIN D3 (cholecalciferol) 50 MCG PO (08:19)
[2024-01-29 11:41] LABS: Glucose - Point of Care 188 mg/dl (70-99)
[2024-01-29] MEDS: NOVOLOG FLEXPEN 15 UNITS SC (11:55)
[2024-01-29] MEDS: NOVOLOG FLEXPEN-LOW RESISTANCE 1 UNITS SC (11:55)
--- NOTE | 2024-01-29 12:07 | W.PN.HOSP.TC ---
Addendum entered and electronically signed by Norberto Chavira MD 01/30/24 16:27:
[id number]
Original Note:
Today's Communication/Plan
-
Await MRI
anticipate dc today after MRI as long as no abscess, subsequent Wound Vac - and plan for oral abx
F/u podiatry, pcp outpatient
wound care
Assessment / Plan
Assessment / Plan
Physical Exam
General: Well Developed, Well Nourished and No Apparent Distress
HEENT: NormoCephalic, Moist mucous membranes and Atraumatic
Respiratory: Clear
Cardiac: S1/S2 and Regular Rhythm; No Murmur or Rub
GI: Soft, Non Tender, Non Distended and Normal Bowel Sounds; No Organomegaly
Rectal: Deferred by Provider
Musculoskeletal: No Clubbing, No Cyanosis and No Edema
Skin: Other (plantar foot erythema and swelling - Wrapped in bandage); No Rash
Neuro: Nonfocal/grossly intact
PLAN:
# Right foot abscess
-S/p I&D - staph
-Podiatry and ID consulted
--Wound culture pending: MSSA - cont cefazolin - dc on oral abx once mri completed - await ID recs
-MRI foot pending
-Wound vac after MRI after ensuring no abscess
Type 2 diabetes
-Continue Jardiance
-Continue Tresiba 18 units nighttime
-resume home regimen insulin
Diabetic neuropathy
-Continue gabapentin
Essential hypertension
-Continue hydrochlorothiazide
-Continue metoprolol
CAD status post stent
-Plavix
-Continue isosorbide mononitrate
-Continue statin
History of pacemaker
GERD
Gout
-Continue allopurinol, colchicine
BPH
-Continue tamsulosin
Full code
DVT prophylaxis�hsq
More than 30 minutes spent in discharge including
Final examination of the patient
Summarizing hospital stay
Instructions for continuing care to all relevant caregivers
Preparation of discharge records, prescriptions, and referral forms
Total time spent (36 in minutes):
Anticipated Discharge: Today
Subjective/Interval History
-
Date of Service: January 29, 2024
No acute events, awaiting MRI
Objective Data
-
Labs:
Laboratory Results
01/29/24
05:49
WBC 7.3
Hgb 14.5
Hct 42.4
Plt Count 292
Sodium 139
Potassium 3.7
Chloride 98
Carbon Dioxide 25
BUN 27 H
Creatinine 1.0
Glucose 211 H
Calcium 9.4
Total Bilirubin 0.8
AST 24
ALT 22
Alkaline Phosphatase 99
Vital Signs:
Vital Signs
Temp Pulse Resp BP Pulse Ox
98.4 F 72 17 142/79 98
01/29/24 07:40 01/29/24 07:40 01/29/24 07:40 01/29/24 07:40 01/29/24 08:00
I&O
01/28/24 01/29/24 01/30/24
06:59 06:59 06:59
Intake Total 1420 / 1420 530 / 530
Output Total 325 / 325
Balance 1095 / 1095 530 / 530
Review of Systems
-
History Source: Patient
All other systems: Not reviewed unless documented
Data Reviewed
-
Diagnostic Radiology: Report Reviewed by me
Labs: Labs Reviewed by me
--- NOTE | 2024-01-29 12:23 | W.PN.ID1 ---
Date of Service
Date of Service: January 29, 2024
Today's Communication
Continue cefazolin. Await MRI.
Assessment / Plan
Right foot abscess; s/p I&D
Right foot cellulitis
DM with neuropathy
Elevated CRP
Leukocytosis; improved
HTN
CAD
Dyslipidemia
Recommendations:
Cultures with Staph aureus (MSSA)
Continue cefazolin.
Continue with local care to the area. VAC therapy to be applied to the wound area.
MRI has been ordered to assess for any potential osteomyelitis; awaiting study
- if positive for osteo, will need 6 weeks IV therapy
����������������������������������������������������������
Chief Complaint
-: Other (Right foot diabetic foot infection)
Subjective / Review of Systems
Review of Systems: No Fever and No Chills
Vital Signs / Physical Exam
Vital Signs
Vital Signs
Temp Pulse Resp BP Pulse Ox
98.4 F 72 17 142/79 98
01/29/24 07:40 01/29/24 07:40 01/29/24 07:40 01/29/24 07:40 01/29/24 08:00
Physical Exam
Constitutional: No Acute Distress, Comfortable and Non-toxic
Eyes: Sclera Anicteric
Cardiovascular: S1/S2; Negative S3/S4
Pulmonary: Non Labored
Gastrointestinal: Soft and Non Tender
Extremities: Negative Cyanosis or Erythema
Wound: Other (Right foot dressed in Jeremias wrap. No erythema extending up foot.)
Neurological: Awake and Alert
Psychological: Calm
Objective Data
Lab Data
Lab Results
01/29/24 05:49
01/29/24 05:49
ESR 26 mm/hour (0-20) H 01/26/24 11:38
Estimated Creat Clear 82 ml/min 01/29/24 05:49
Total Bilirubin 0.8 mg/dl (0.2-1.3) 01/29/24 05:49
AST 24 U/L (17-59) 01/29/24 05:49
ALT 22 U/L (0-50) 01/29/24 05:49
Alkaline Phosphatase 99 U/L (38-126) 01/29/24 05:49
C-Reactive Protein 75.10 mg/L (0.0-10.00) H 01/26/24 11:38
Most recent labs reviewed.
Micro Results:
01/26/24 18:13 Wound Culture - Final
Abscess S aureus-Methicillin Sensitive
Gram Stain - Final
01/26/24 18:13 Anaerobic Culture - Final
Abscess NO ANAEROBES ISOLATED
01/26/24 13:52 Wound Culture - Final
Foot - Right S aureus-Methicillin Sensitive
Gram Stain - Final
Wound/abscess/other Cult Final 01/26/24
Moderate S aureus-Methicillin Sensitive
Organism 1 S aureus-Methicillin Sensitive
1. S aureus-Methicillin Sensitive
M.I.C. RX
--------- ---
Amoxicillin/Potas. Clavulanate <=4/2 S
Ampicillin <=2 R
Clindamycin <=0.5 R
Gentamicin <=4 S
Erythromycin >4 R
Levofloxacin <=1 S
Oxacillin <=0.25 S
Tetracycline <=4 S
Trimethoprim/Sulfamethoxazole <=0.5/9.5 S
Vancomycin 1 S
Imaging:
01/26/2024 Right foot x-ray: No acute fracture, dislocation or subluxation. A small plantar calcaneal spur is noted. Mild degenerative changes of the first metatarsal phalangeal joint noted. No periosteal reaction or erosive changes noted. No
opaque foreign body identified. Please see full dictation for additional detail. Film personally reviewed.
Care Review
Plan reviewed with: Nurse
--- NOTE | 2024-01-29 14:27 | CM ---
Chart reviewed. Met with pt and his at bedside
Poss d/c today pending MRI
Wound care aware - will place wound vac prior to discharge
[facility] to follow at home - confirmed with Abdoul at [facility] [phone]. To start tomorrow.
[facility] updated with 's phone number for contact - [phone]
Pt/ requesting rolling walker. PT unable to provide - insurance
[facility] - unable to deliver until Thursday
[facility] - left message - waiting for return call
[facility] - spoke with Reynaldo - can deliver tomorrow. Faxed Rx and face sheet to [phone]
Updated pt and family
Pt has transport home when discharged
Given IMM
Plan - home with [facility]
f - [phone]
--- NOTE | 2024-01-29 15:17 | WOUNDNOTE ---
HENRIQUE RN NOTE: Scheduled MRI 3pm. Applied wound vac prior to study as ordered, wound care not available after 4:00. Instructed nurse Tamiko how to re attach tubing to home vac unit when returns and to remove dressing if MRI + for abscess. Nurse will
call Dr. Lowery for further instructions regarding wound care if that is the case. R plantar wound base clean, periwound intact. Layla seal used around opening to ensure good seal. Adaptic to base of wound followed by black foam bridged to anterior
foot. ABD pads and luis wrap to secure dressing re applied. Patient is non weight bearing to plantar foot, using walker. Ambulated to stretcher for MRI after vac applied and ensured a good seal. Family member at bedside interpreted instructions.
Teaching done with her and patient regarding home vac machine. Showed how to apply canister when full and reviewed vac pamphlet. Answered all questions. Patient for discharge later today and VN scheduled for home care starting tomorrow reports
family member. Discharge instructions updated and vac supplies at bedside to take home upon discharge. Will Fax proof of delivery form to [facility]/ and update in express.
[2024-01-29 16:34] LABS: Glucose - Point of Care 282 mg/dl (70-99)
[2024-01-29 17:10] LABS: Glucose - Point of Care 97 mg/dl (70-99)
[2024-01-29] MEDS: NOVOLOG FLEXPEN-LOW RESISTANCE SC (17:13)
== END 2024-01-29 17:50 | disposition home or self-care (01) | DRG 580 ==
LOC: 2 SOUTH 14:06
PROVIDERS: Emergency Medicine; ADMITTING PHYSICIAN Hospitalist; ATTENDING PHYSICIAN Internal Medicine; CONSULT PHYSICIAN Internal Medicine Infectious Disease; CONSULT PHYSICIAN Podiatrist Foot Surgery; EMERGENCY PHYSICIAN Emergency Medicine
PROC: 0J9Q0ZX Drainage of Right Foot Subcutaneous Tissue and Fascia, Open Approach, Diagnostic (ICD-10-PCS; 2024-01-26)
PROC: 0LBV0ZX Excision of Right Foot Tendon, Open Approach, Diagnostic (ICD-10-PCS; 2024-01-26)
DX: L02.611 Cutaneous abscess of right foot (principal); E11.52 Type 2 diabetes mellitus with diabetic peripheral angiopathy with gangrene; L03.115 Cellulitis of right lower limb; B95.61 Methicillin susceptible Staphylococcus aureus infection as the cause of diseases classified elsewhere; E11.40 Type 2 diabetes mellitus with diabetic neuropathy, unspecified; E11.628 Type 2 diabetes mellitus with other skin complications; I10 Essential (primary) hypertension; E78.00 Pure hypercholesterolemia, unspecified; I25.10 Atherosclerotic heart disease of native coronary artery without angina pectoris; K21.9 Gastro-esophageal reflux disease without esophagitis; M10.9 Gout, unspecified; N40.0 Benign prostatic hyperplasia without lower urinary tract symptoms; Z95.0 Presence of cardiac pacemaker; Z95.5 Presence of coronary angioplasty implant and graft; Z79.02 Long term (current) use of antithrombotics/antiplatelets; Z79.4 Long term (current) use of insulin; Z79.84 Long term (current) use of oral hypoglycemic drugs; S91.331A Puncture wound without foreign body, right foot, initial encounter; Z87.891 Personal history of nicotine dependence; E11.621 Type 2 diabetes mellitus with foot ulcer; L97.519 Non-pressure chronic ulcer of other part of right foot with unspecified severity
CPT/HCPCS: 71046; 73630; 73718; 80053; 82962; 83036; 85025; 85027; 85652; 86140; 87070; 87075; 87147; 87186; 87205; 96365; 97116; 97162; 97530; 99285

== ENCOUNTER → 2024-03-03 11:48 | Outpatient (REF) | payer MEDICARE, OTHER, SELFPAY | LOC: RAD 11:48 | PROVIDERS: ATTENDING PHYSICIAN Podiatrist Foot Surgery | DX: L97.513 Non-pressure chronic ulcer of other part of right foot with necrosis of muscle (principal) | CPT/HCPCS: 73630 ==

== ENCOUNTER → 2025-01-12 09:08 | Outpatient (REF) | payer MEDICARE, OTHER, SELFPAY | LOC: RAD 09:08 | PROVIDERS: ATTENDING PHYSICIAN Podiatrist Foot Surgery; FAMILY PHYSICIAN Internal Medicine | DX: M86.171 Other acute osteomyelitis, right ankle and foot (principal) | CPT/HCPCS: 78315; A9503 ==